=== PATIENT | female | born 1990 | race Caucasian/White ===

== ENCOUNTER 2021-05-04 09:43 | Emergency (ER) | payer OTHER ==
[~2021-05-04] VITALS: Ht 167.6 cm; Wt 113.4 kg
[2021-05-04 09:50] VITALS: BP 134/88
--- NOTE | 2021-05-04 10:00 | NUR ---
THE PATIENT BIBS FOR C/O L EYE PAIN AND REDNESS X 1 MONTH. NO DISCHARGE NOTED AT THIS TIME. DENIES CHANGE IN VISION. WILL CONTINUE TO MONITOR THE PATIENT.
[2021-05-04] MEDS ORDERED: CETI-90 PO (10:10)
[2021-05-04] MEDS ORDERED: POLY10DR3 LEFTEYE (10:10)
--- NOTE | 2021-05-04 10:24 | NUR ---
Patient discharged to home in stable condition. Written and verbal after care instructions given. Patient verbalizes understanding of instruction.
== END 2021-05-04 10:25 | disposition home or self-care (01) ==
LOC: ER 09:53
DX: H10.9 Unspecified conjunctivitis (principal); I10 Essential (primary) hypertension